=== PATIENT | female | born 1975 | race Caucasian/White ===

== ENCOUNTER 2017-09-25 12:20 | Emergency (ER) | payer OTHER ==
[~2017-09-25] VITALS: Ht 162.6 cm; Wt 106.6 kg
[~2017-09-25 12:20] MED LIST: ACETAMINOPHEN-1 EAC1 PO; AMOXICILLIN875 MG PO; BACTRIM DS TAB1 EAC1 PO; BACTRIM DS TAB1 EACH PO; CELEXA20 MG PO; CELEXA40 MG; CLEOCIN HCL150 MG PO; CLONAZEPAM 1 MG1 M1; CORTISPORIN OTI10 ML OTIC; DOXYCYCLINE 10100 MG PO; FLEXERIL PO; HYDROCODON-ACE1 EAC7 PO; HYDROCODONE-AP1 EAC6 PO; IBUPROFEN 800800 M1 PO; IMITREX 25 MG T25 M1; LATUDA60 MG PO; MEDROLDOSEPACK PO; MOBIC7.5 MG PO; NAPROSYN500 MG PO; NORCO 5-325 TA1 EAC1 PO; NORCO 5-325 TA1 EACH PO; NORFLEX100 MG; PREDNISONE 20 M20 M1 PO; ROBAXIN 750 MG750 M1 PO; ROBAXIN500 MG PO; SEROQUEL XR150 MG PO; TOPAMAX 25 MG T25 M1 PO; TOPAMAX50 MG PO; TORADOL 10 MG T10 MG PO; TRAMADOL 50 MG50 MG PO; TRAZODONE HCL100 MG PO; TRAZODONE HCL50 MG; TUSSIONEX PENN473 ML PO; VOLTAREN GEL 1100 G1 TOP; XANAX 0.5 MG0.5 MG PO
[2017-09-25 12:45] LABS: URINE BILIRUBIN NEGATIVE (Negative); URINE BLOOD TRACE (Negative); URINE CLARITY CLEAR; URINE COLOR YELLOW; URINE GLUCOSE-RANDOM NEGATIVE (Negative); URINE KETONES TRACE (Negative); URINE LEUKOCYTES-REFLEX NEGATIVE (Negative); URINE NITRITE-REFLEX NEGATIVE (Negative); URINE PROTEIN 1+ (Negative); URINE SPECIFIC GRAVITY >= 1.030 (1.005-1.030); URINE UROBILINOGEN 0.2 E.U./dl (0.2-1.0)
[2017-09-25 13:10] LABS: INFLUENZA A ANTIGEN None Detected (None Detect); INFLUENZA B ANTIGEN None Detected (None Detect)
[2017-09-25] MEDS ORDERED: PROMETHAZINE/C118 ML PO (13:21)
[2017-09-25] MEDS ORDERED: VENTOLIN HFA 1818 GM INH (13:21)
[2017-09-25] MEDS ORDERED: PREDNISONE 20 M20 M1 PO (13:21)
[2017-09-25] MEDS ORDERED: ZPAK PO (13:21)
[2017-09-25 13:40] VITALS: BP 131/77
== END 2017-09-25 13:41 | disposition home or self-care (01) ==
LOC: M.ERS 12:20
PROVIDERS: Family Medicine
DX: F41.9 Anxiety disorder, unspecified (principal); F31.9 Bipolar disorder, unspecified; M19.90 Unspecified osteoarthritis, unspecified site; Z98.890 Other specified postprocedural states; J40 Bronchitis, not specified as acute or chronic; Z88.1 Allergy status to other antibiotic agents; Z88.8 Allergy status to other drugs, medicaments and biological substances

== ENCOUNTER 2018-01-25 11:21 | Emergency (ER) | payer OTHER ==
[~2018-01-25] VITALS: Ht 162.6 cm; Wt 118.8 kg
[~2018-01-25 11:21] MED LIST changes: +PROMETHAZINE/C118 ML PO; +VENTOLIN HFA 1818 GM INH; +ZPAK PO
[2018-01-25 11:30] LABS: URINE BILIRUBIN NEGATIVE (Negative); URINE BLOOD 1+ (Negative); URINE CLARITY CLEAR; URINE COLOR YELLOW; URINE GLUCOSE-RANDOM NEGATIVE (Negative); URINE KETONES NEGATIVE (Negative); URINE LEUKOCYTES-REFLEX NEGATIVE (Negative); URINE NITRITE-REFLEX NEGATIVE (Negative); URINE PROTEIN NEGATIVE (Negative); URINE SPECIFIC GRAVITY >= 1.030 (1.005-1.030); URINE UROBILINOGEN 0.2 E.U./dl (0.2-1.0)
[2018-01-25] MEDS ORDERED: PROPRANOLOL 1010 MG PO (11:30)
[2018-01-25 11:38] LABS: ABSOLUTE BASOPHILS 0.1 thou/uL (0.0-0.2); ABSOLUTE EOSINOPHILS 0.3 thou/uL (0.0-0.7); ABSOLUTE LYMPHOCYTES 2.7 thou/uL (0.8-5.3); ABSOLUTE MONOCYTES 0.6 thou/uL (0.0-1.2); ABSOLUTE NEUTROPHILS 7.4 thou/uL (1.6-8.1); BASOPHILS 0.6 %; EOSINOPHILS 2.9 %; HEMATOCRIT 44.1 % (37.0-47.0); HEMOGLOBIN 14.8 gm/dL (12.0-15.0); LYMPHOCYTES 24.5 %; MCH 31.3 pg (26.0-34.0); MCHC 33.6 g/dL (28.0-37.0); MCV 93.2 fL (80.0-100.0); MONOCYTES 5.5 %; NUCLEATED RBCS 0 /100WBC; PLATELET COUNT* 211 thou/uL (150-400); POLYS 66.5 %; RBC 4.73 mil/uL (4.20-5.00); RDW-CV 14.1 % (10.5-14.5); WBC 11.1 thou/uL (4.0-11.0)
[2018-01-25 11:40] LABS: SQUAMOUS 4-10 Moderate /LPF (0-3); URINE RBC 3-10 Few /HPF (0-2); URINE WBC-REFLEX None Seen /HPF (0-5)
[2018-01-25 11:41] LABS: BACTERIA-REFLEX 1-9 Few /HPF (None Seen); CASTS None Seen /LPF (None Seen); MUCUS 4-6 Moderate strn/LPF (None Seen)
[2018-01-25 11:43] LABS: CRYSTALS None Seen /LPF (None Seen)
[2018-01-25 11:57] LABS: CREATININE 0.9 mg/dL (0.6-1.3); POTASSIUM 3.6 mmol/L (3.5-5.1)
[2018-01-25 12:02] LABS: ALBUMIN 3.8 g/dL (3.4-5.0); TOTAL BILIRUBIN 0.2 mg/dL (<0.1-1.0); TOTAL PROTEIN 7.4 g/dL (6.4-8.2)
[2018-01-25] MEDS ORDERED: ULTRAM 50MG TAB50 MG PO (12:56)
[2018-01-25] MEDS ORDERED: FLEXERIL PO (12:56)
[2018-01-25 13:03] VITALS: BP 144/93
== END 2018-01-25 13:04 | disposition home or self-care (01) ==
LOC: M.ERS 11:21
PROVIDERS: Family Medicine
DX: M54.5 Low back pain (principal); F31.9 Bipolar disorder, unspecified; M79.7 Fibromyalgia; M46.90 Unspecified inflammatory spondylopathy, site unspecified; F17.210 Nicotine dependence, cigarettes, uncomplicated; Z88.1 Allergy status to other antibiotic agents; Z88.8 Allergy status to other drugs, medicaments and biological substances

== ENCOUNTER 2018-03-09 17:40 | Emergency (ER) | payer OTHER ==
[~2018-03-09] VITALS: Ht 162.6 cm; Wt 115.7 kg
[~2018-03-09 17:40] MED LIST changes: +PROPRANOLOL 1010 MG PO; +ULTRAM 50MG TAB50 MG PO
[2018-03-09 17:56] LABS: URINE BILIRUBIN NEGATIVE (Negative); URINE BLOOD 1+ (Negative); URINE CLARITY CLEAR; URINE COLOR YELLOW; URINE GLUCOSE-RANDOM NEGATIVE (Negative); URINE KETONES NEGATIVE (Negative); URINE LEUKOCYTES-REFLEX NEGATIVE (Negative); URINE NITRITE-REFLEX NEGATIVE (Negative); URINE PROTEIN NEGATIVE (Negative); URINE SPECIFIC GRAVITY 1.025 (1.005-1.030); URINE UROBILINOGEN 0.2 E.U./dl (0.2-1.0)
[2018-03-09] MEDS ORDERED: QUETIAPINE FUM100 MG PO (18:02)
[2018-03-09 18:04] LABS: BACTERIA-REFLEX None Seen /HPF (None Seen); CASTS None Seen /LPF (None Seen); CRYSTALS None Seen /LPF (None Seen); MUCUS 0-3 Light strn/LPF (None Seen); SQUAMOUS >10 Many /LPF (0-3); URINE RBC 3-10 Few /HPF (0-2); URINE WBC-REFLEX None Seen /HPF (0-5)
[2018-03-09 18:36] LABS: ABSOLUTE BASOPHILS 0.1 thou/uL (0.0-0.2); ABSOLUTE EOSINOPHILS 0.2 thou/uL (0.0-0.7); ABSOLUTE MONOCYTES 0.9 thou/uL (0.0-1.2); ABSOLUTE NEUTROPHILS 11.3 thou/uL (1.6-8.1); BASOPHILS 0.5 %; EOSINOPHILS 1.4 %; HEMATOCRIT 44.6 % (37.0-47.0); HEMOGLOBIN 14.8 gm/dL (12.0-15.0); LYMPHOCYTES 19.3 %; MCH 30.8 pg (26.0-34.0); MCHC 33.2 g/dL (28.0-37.0); MCV 92.8 fL (80.0-100.0); MPV 10.3 fl. (7.2-11.1); NUCLEATED RBCS 0 /100WBC; PLATELET COUNT* 219 thou/uL (150-400); POLYS 72.8 %; RBC 4.81 mil/uL (4.20-5.00); RDW-CV 13.7 % (10.5-14.5); WBC 15.5 thou/uL (4.0-11.0)
[2018-03-09 18:44] LABS: CALCIUM 8.4 mg/dL (8.5-10.1); POTASSIUM 3.5 mmol/L (3.5-5.1)
[2018-03-09 18:48] LABS: ALBUMIN 3.6 g/dL (3.4-5.0); TOTAL BILIRUBIN 0.4 mg/dL (<0.1-1.0); TOTAL PROTEIN 7.6 g/dL (6.4-8.2)
[2018-03-09] MEDS ORDERED: HYDROCODONE-AP1 EAC6 PO (19:56)
[2018-03-09 20:27] VITALS: BP 135/83
== END 2018-03-09 20:29 | disposition home or self-care (01) ==
LOC: M.ERS 17:40
PROVIDERS: Nurse Practitioner Family
DX: N80.9 Endometriosis, unspecified (principal); F31.9 Bipolar disorder, unspecified; F41.9 Anxiety disorder, unspecified; M79.7 Fibromyalgia; M19.90 Unspecified osteoarthritis, unspecified site; G89.29 Other chronic pain; M54.9 Dorsalgia, unspecified; F17.210 Nicotine dependence, cigarettes, uncomplicated; Z88.1 Allergy status to other antibiotic agents; Z88.8 Allergy status to other drugs, medicaments and biological substances

== ENCOUNTER 2018-05-21 09:28 | Emergency (ER) | payer OTHER ==
[~2018-05-21] VITALS: Ht 162.6 cm; Wt 116.1 kg
[~2018-05-21 09:28] MED LIST changes: +QUETIAPINE FUM100 MG PO
[2018-05-21 09:55] LABS: ABSOLUTE BASOPHILS 0.1 thou/uL (0.0-0.2); ABSOLUTE EOSINOPHILS 0.1 thou/uL (0.0-0.7); ABSOLUTE MONOCYTES 0.6 thou/uL (0.0-1.2); ABSOLUTE NEUTROPHILS 5.9 thou/uL (1.6-8.1); BASOPHILS 0.6 %; EOSINOPHILS 1.4 %; HEMATOCRIT 44.1 % (37.0-47.0); HEMOGLOBIN 14.7 gm/dL (12.0-15.0); LYMPHOCYTES 23.3 %; MCH 31.3 pg (26.0-34.0); MCHC 33.3 g/dL (28.0-37.0); MCV 94.1 fL (80.0-100.0); MONOCYTES 6.7 %; MPV 10.4 fl. (7.2-11.1); NUCLEATED RBCS 0 /100WBC; PLATELET COUNT* 194 thou/uL (150-400); RBC 4.68 mil/uL (4.20-5.00); RDW-CV 14.4 % (10.5-14.5); WBC 8.6 thou/uL (4.0-11.0)
[2018-05-21 10:03] LABS: CALCIUM 8.1 mg/dL (8.5-10.1); CREATININE 0.8 mg/dL (0.6-1.3); POTASSIUM 3.7 mmol/L (3.5-5.1)
[2018-05-21 10:07] LABS: ALBUMIN 3.8 g/dL (3.4-5.0); TOTAL BILIRUBIN 0.3 mg/dL (<0.1-1.0); TOTAL PROTEIN 7.2 g/dL (6.4-8.2)
[2018-05-21] MEDS ORDERED: HYDROCODONE-AP1 EAC6 PO (10:17)
[2018-05-21] MEDS ORDERED: DOXYCYCLINE 10100 MG PO (10:17)
[2018-05-21 10:30] VITALS: BP 129/73
== END 2018-05-21 10:31 | disposition home or self-care (01) ==
LOC: M.ERS 09:28
PROVIDERS: Emergency Medicine Emergency Medical Services
DX: J32.9 Chronic sinusitis, unspecified (principal); F41.9 Anxiety disorder, unspecified; F31.9 Bipolar disorder, unspecified; M79.7 Fibromyalgia; G89.29 Other chronic pain; M54.9 Dorsalgia, unspecified; F17.210 Nicotine dependence, cigarettes, uncomplicated; Z88.1 Allergy status to other antibiotic agents; Z88.8 Allergy status to other drugs, medicaments and biological substances

== ENCOUNTER 2018-05-26 11:06 | Emergency (ER) | payer OTHER ==
[~2018-05-26] VITALS: Ht 162.6 cm; Wt 116.1 kg
[2018-05-26 11:38] LABS: ABSOLUTE EOSINOPHILS 0.2 thou/uL (0.0-0.7); ABSOLUTE LYMPHOCYTES 2.4 thou/uL (0.8-5.3); ABSOLUTE MONOCYTES 0.7 thou/uL (0.0-1.2); ABSOLUTE NEUTROPHILS 7.4 thou/uL (1.6-8.1); BASOPHILS 0.4 %; EOSINOPHILS 1.8 %; HEMATOCRIT 43.9 % (37.0-47.0); HEMOGLOBIN 14.6 gm/dL (12.0-15.0); LYMPHOCYTES 22.5 %; MCH 31.9 pg (26.0-34.0); MCHC 33.3 g/dL (28.0-37.0); MCV 95.7 fL (80.0-100.0); MONOCYTES 6.4 %; MPV 10.7 fl. (7.2-11.1); NUCLEATED RBCS 0 /100WBC; PLATELET COUNT* 203 thou/uL (150-400); POLYS 68.9 %; RBC 4.59 mil/uL (4.20-5.00); RDW-CV 14.6 % (10.5-14.5); WBC 10.8 thou/uL (4.0-11.0)
[2018-05-26 12:03] LABS: CALCIUM 8.6 mg/dL (8.5-10.1); CREATININE 1.1 mg/dL (0.6-1.3); POTASSIUM 3.8 mmol/L (3.5-5.1)
[2018-05-26 12:13] LABS: ALBUMIN 3.9 g/dL (3.4-5.0); TOTAL BILIRUBIN 0.2 mg/dL (<0.1-1.0); TOTAL PROTEIN 7.6 g/dL (6.4-8.2)
[2018-05-26] MEDS ORDERED: PREDNISONE 20 M20 M1 PO (12:18)
[2018-05-26] MEDS ORDERED: VENTOLIN HFA 1818 GM INH (12:18)
[2018-05-26 12:36] VITALS: BP 127/65
== END 2018-05-26 12:39 | disposition home or self-care (01) ==
LOC: M.ERS 11:06
PROVIDERS: Family Medicine
DX: J40 Bronchitis, not specified as acute or chronic (principal); F41.9 Anxiety disorder, unspecified; F31.9 Bipolar disorder, unspecified; M79.7 Fibromyalgia; G89.29 Other chronic pain; M54.9 Dorsalgia, unspecified; N80.9 Endometriosis, unspecified; M46.90 Unspecified inflammatory spondylopathy, site unspecified; F17.210 Nicotine dependence, cigarettes, uncomplicated; Z88.1 Allergy status to other antibiotic agents; Z88.8 Allergy status to other drugs, medicaments and biological substances

== ENCOUNTER 2018-06-17 18:26 | Emergency (ER) | payer OTHER ==
[~2018-06-17] VITALS: Ht 154.9 cm; Wt 116.1 kg
[2018-06-17] MEDS ORDERED: NORFLEX100 MG PO (18:42)
[2018-06-17 18:52] VITALS: BP 136/87
== END 2018-06-17 18:53 | disposition home or self-care (01) ==
LOC: M.ERS 18:26
DX: S16.1XXA Strain of muscle, fascia and tendon at neck level, initial encounter (principal); F41.9 Anxiety disorder, unspecified; F31.9 Bipolar disorder, unspecified; M79.7 Fibromyalgia; G89.29 Other chronic pain; M54.9 Dorsalgia, unspecified; N80.9 Endometriosis, unspecified; F17.210 Nicotine dependence, cigarettes, uncomplicated; Z88.1 Allergy status to other antibiotic agents; Z88.8 Allergy status to other drugs, medicaments and biological substances; X58.XXXA Exposure to other specified factors, initial encounter; Y93.89 Activity, other specified; Y92.89 Other specified places as the place of occurrence of the external cause; Y99.8 Other external cause status

== ENCOUNTER 2018-07-27 15:59 | Emergency (ER) | payer OTHER ==
[~2018-07-27] VITALS: Ht 162.6 cm; Wt 111.1 kg
[~2018-07-27 15:59] MED LIST changes: +NORFLEX100 MG PO
[2018-07-27 17:00] LABS: ABSOLUTE BASOPHILS 0.1 thou/uL (0.0-0.2); ABSOLUTE EOSINOPHILS 0.1 thou/uL (0.0-0.7); ABSOLUTE LYMPHOCYTES 2.3 thou/uL (0.8-5.3); ABSOLUTE MONOCYTES 0.7 thou/uL (0.0-1.2); ABSOLUTE NEUTROPHILS 7.1 thou/uL (1.6-8.1); BASOPHILS 0.6 %; HEMATOCRIT 46.2 % (37.0-47.0); HEMOGLOBIN 15.3 gm/dL (12.0-15.0); LYMPHOCYTES 22.3 %; MCH 31.6 pg (26.0-34.0); MCV 95.5 fL (80.0-100.0); MONOCYTES 6.9 %; MPV 10.5 fl. (7.2-11.1); NUCLEATED RBCS 0 /100WBC; PLATELET COUNT* 188 thou/uL (150-400); POLYS 69.2 %; RBC 4.84 mil/uL (4.20-5.00); RDW-CV 13.8 % (10.5-14.5); WBC 10.3 thou/uL (4.0-11.0)
[2018-07-27 17:08] LABS: CALCIUM 8.5 mg/dL (8.5-10.1); CREATININE 0.9 mg/dL (0.6-1.3); POTASSIUM 3.8 mmol/L (3.5-5.1)
[2018-07-27 17:13] LABS: ALBUMIN 3.9 g/dL (3.4-5.0); TOTAL BILIRUBIN 0.3 mg/dL (<0.1-1.0); TOTAL PROTEIN 7.6 g/dL (6.4-8.2)
[2018-07-27 17:44] LABS: URINE BILIRUBIN NEGATIVE (Negative); URINE BLOOD 1+ (Negative); URINE CLARITY CLEAR; URINE COLOR YELLOW; URINE GLUCOSE-RANDOM NEGATIVE (Negative); URINE KETONES NEGATIVE (Negative); URINE LEUKOCYTES-REFLEX NEGATIVE (Negative); URINE NITRITE-REFLEX NEGATIVE (Negative); URINE PROTEIN NEGATIVE (Negative); URINE SPECIFIC GRAVITY >= 1.030 (1.005-1.030); URINE UROBILINOGEN 0.2 E.U./dl (0.2-1.0)
[2018-07-27 17:54] LABS: SQUAMOUS >10 Many /LPF (0-3)
[2018-07-27 17:55] LABS: BACTERIA-REFLEX None Seen /HPF (None Seen); CASTS None Seen /LPF (None Seen); CRYSTALS None Seen /LPF (None Seen); URINE RBC 0-2 Rare /HPF (0-2); URINE WBC-REFLEX 0-5 Rare /HPF (0-5); YEAST-REFLEX Present (None Seen)
[2018-07-27 18:32] VITALS: BP 123/78
== END 2018-07-27 18:33 | disposition home or self-care (01) ==
LOC: M.ERS 15:59
PROVIDERS: Personal Emergency Response Attendant
DX: S06.0X0A Concussion without loss of consciousness, initial encounter (principal); S39.012A Strain of muscle, fascia and tendon of lower back, initial encounter; M25.552 Pain in left hip; R11.10 Vomiting, unspecified; H53.149 Visual discomfort, unspecified; F41.9 Anxiety disorder, unspecified; F31.9 Bipolar disorder, unspecified; M79.7 Fibromyalgia; M46.90 Unspecified inflammatory spondylopathy, site unspecified; N80.9 Endometriosis, unspecified; F17.210 Nicotine dependence, cigarettes, uncomplicated; Z88.1 Allergy status to other antibiotic agents; Z88.8 Allergy status to other drugs, medicaments and biological substances; W01.0XXA Fall on same level from slipping, tripping and stumbling without subsequent striking against object, initial encounter; Y93.89 Activity, other specified; Y92.091 Bathroom in other non-institutional residence as the place of occurrence of the external cause; Y99.8 Other external cause status

== ENCOUNTER 2018-08-25 10:42 | Emergency (ER) | payer OTHER ==
[~2018-08-25] VITALS: Ht 162.6 cm; Wt 117.0 kg
[2018-08-25] MEDS ORDERED: PROPRANOLOL 1010 MG PO (10:54)
[2018-08-25] MEDS ORDERED: TOPAMAX 25 MG T25 M1 PO (10:54)
[2018-08-25] MEDS ORDERED: ABILIFY 2 MG2 M1 PO (10:54)
[2018-08-25] MEDS ORDERED: HYDROCODONE-AP1 EAC6 PO (12:03)
[2018-08-25] MEDS ORDERED: ROBAXIN 750 MG750 M1 PO (12:06)
[2018-08-25 12:40] VITALS: BP 130/87
== END 2018-08-25 12:40 | disposition home or self-care (01) ==
LOC: M.ERS 10:42
DX: M54.5 Low back pain (principal); M62.830 Muscle spasm of back; F41.9 Anxiety disorder, unspecified; F31.9 Bipolar disorder, unspecified; M79.7 Fibromyalgia; G89.29 Other chronic pain; M46.90 Unspecified inflammatory spondylopathy, site unspecified; F17.210 Nicotine dependence, cigarettes, uncomplicated; Z88.1 Allergy status to other antibiotic agents; Z88.8 Allergy status to other drugs, medicaments and biological substances; W01.0XXA Fall on same level from slipping, tripping and stumbling without subsequent striking against object, initial encounter; Y93.89 Activity, other specified; Y92.89 Other specified places as the place of occurrence of the external cause; Y99.8 Other external cause status

== ENCOUNTER 2018-10-09 09:21 | Emergency (ER) | payer OTHER ==
[~2018-10-09] VITALS: Ht 162.6 cm; Wt 113.4 kg
[~2018-10-09 09:21] MED LIST changes: +ABILIFY 2 MG2 M1 PO
[2018-10-09] MEDS ORDERED: BACTRIM DS TAB1 EAC1 PO (10:52)
[2018-10-09] MEDS ORDERED: NORCO 5-325 TA1 EACH PO (10:52)
[2018-10-09] MEDS ORDERED: NABUMETONE 750750 M1 PO (10:52)
[2018-10-09 11:16] VITALS: BP 125/56
== END 2018-10-09 11:17 | disposition home or self-care (01) ==
LOC: M.ERS 09:21
DX: L60.0 Ingrowing nail (principal); F17.210 Nicotine dependence, cigarettes, uncomplicated; F41.9 Anxiety disorder, unspecified; M79.7 Fibromyalgia; F31.9 Bipolar disorder, unspecified; M54.9 Dorsalgia, unspecified; G89.29 Other chronic pain; N80.9 Endometriosis, unspecified; M46.96 Unspecified inflammatory spondylopathy, lumbar region; Z88.8 Allergy status to other drugs, medicaments and biological substances; Z90.89 Acquired absence of other organs; Z88.1 Allergy status to other antibiotic agents

== ENCOUNTER 2019-01-17 18:45 | Emergency (ER) | payer OTHER ==
[~2019-01-17] VITALS: Ht 162.6 cm; Wt 112.5 kg
[~2019-01-17 18:45] MED LIST changes: +NABUMETONE 750750 M1 PO
[2019-01-17] MEDS ORDERED: HYDROCODONE-AP1 EAC6 PO (20:13)
[2019-01-17] MEDS ORDERED: ROBAXIN 750 MG750 M1 PO (20:13)
[2019-01-17 20:36] VITALS: BP 126/82
== END 2019-01-17 20:36 | disposition home or self-care (01) ==
LOC: M.ERS 18:45
DX: M25.552 Pain in left hip (principal); S39.012A Strain of muscle, fascia and tendon of lower back, initial encounter; F41.9 Anxiety disorder, unspecified; F31.9 Bipolar disorder, unspecified; M79.7 Fibromyalgia; G89.29 Other chronic pain; N80.9 Endometriosis, unspecified; F17.210 Nicotine dependence, cigarettes, uncomplicated; Z88.1 Allergy status to other antibiotic agents; Z88.8 Allergy status to other drugs, medicaments and biological substances; W10.8XXA Fall (on) (from) other stairs and steps, initial encounter; Y93.89 Activity, other specified; Y92.89 Other specified places as the place of occurrence of the external cause; Y99.8 Other external cause status

== ENCOUNTER 2019-02-28 14:49 | Emergency (ER) | payer OTHER ==
[~2019-02-28] VITALS: Ht 162.6 cm; Wt 108.9 kg
[2019-02-28] MEDS ORDERED: PROPRANOLOL 1010 M1 PO (15:05)
[2019-02-28] MEDS ORDERED: TRAMADOL 50 MG50 MG PO (15:54)
[2019-02-28 16:21] VITALS: BP 139/97
== END 2019-02-28 16:22 | disposition home or self-care (01) ==
LOC: M.ERS 14:49
DX: G89.29 Other chronic pain (principal); M54.2 Cervicalgia; M25.511 Pain in right shoulder; M25.512 Pain in left shoulder; F41.9 Anxiety disorder, unspecified; F31.9 Bipolar disorder, unspecified; M79.7 Fibromyalgia; M54.9 Dorsalgia, unspecified; N80.9 Endometriosis, unspecified; M46.90 Unspecified inflammatory spondylopathy, site unspecified; F17.210 Nicotine dependence, cigarettes, uncomplicated; Z88.1 Allergy status to other antibiotic agents; Z88.8 Allergy status to other drugs, medicaments and biological substances

== ENCOUNTER 2019-05-30 18:23 | Emergency (ER) | payer OTHER ==
[~2019-05-30] VITALS: Ht 162.6 cm; Wt 121.6 kg
[~2019-05-30 18:23] MED LIST changes: +PROPRANOLOL 1010 M1 PO
[2019-05-30] MEDS ORDERED: TOPAMAX100 MG PO (18:39)
[2019-05-30] MEDS ORDERED: CELEXA 20 MG TA20 MG PO (18:39)
[2019-05-30] MEDS ORDERED: HYDROXYZINE HCL10 M1 PO (18:40)
[2019-05-30] MEDS ORDERED: ROBAXIN 750 MG750 MG PO (19:31)
[2019-05-30 19:44] VITALS: BP 129/84
== END 2019-05-30 19:45 | disposition home or self-care (01) ==
LOC: M.ERS 18:23
DX: M79.7 Fibromyalgia (principal); N80.9 Endometriosis, unspecified; F41.9 Anxiety disorder, unspecified; F31.9 Bipolar disorder, unspecified; M46.90 Unspecified inflammatory spondylopathy, site unspecified; F17.210 Nicotine dependence, cigarettes, uncomplicated; Z88.1 Allergy status to other antibiotic agents; Z88.8 Allergy status to other drugs, medicaments and biological substances

== ENCOUNTER 2019-06-23 21:26 | Emergency (ER) | payer OTHER ==
[~2019-06-23] VITALS: Ht 162.6 cm; Wt 113.8 kg
[~2019-06-23 21:26] MED LIST changes: +CELEXA 20 MG TA20 MG PO; +HYDROXYZINE HCL10 M1 PO; +ROBAXIN 750 MG750 MG PO; +TOPAMAX100 MG PO
[2019-06-23] MEDS ORDERED: RISPERDAL0.5 MG PO (21:40)
[2019-06-24] MEDS ORDERED: LORCET 5-325 M1 EACH PO (00:44)
[2019-06-24 01:00] VITALS: BP 149/73
== END 2019-06-24 01:00 | disposition home or self-care (01) ==
LOC: M.ERS 21:26
DX: S63.591A Other specified sprain of right wrist, initial encounter (principal); F41.9 Anxiety disorder, unspecified; F31.9 Bipolar disorder, unspecified; M79.7 Fibromyalgia; G89.29 Other chronic pain; N80.9 Endometriosis, unspecified; F17.210 Nicotine dependence, cigarettes, uncomplicated; Z88.1 Allergy status to other antibiotic agents; Z98.890 Other specified postprocedural states; Z88.8 Allergy status to other drugs, medicaments and biological substances; W18.39XA Other fall on same level, initial encounter; Y93.89 Activity, other specified; Y92.89 Other specified places as the place of occurrence of the external cause; Y99.8 Other external cause status

== ENCOUNTER 2019-08-06 17:50 | Emergency (ER) | payer OTHER ==
[~2019-08-06] VITALS: Ht 162.6 cm; Wt 109.8 kg
[~2019-08-06 17:50] MED LIST changes: +LORCET 5-325 M1 EACH PO; +RISPERDAL0.5 MG PO
[2019-08-06] MEDS ORDERED: MELOXICAM7.5 MG PO (18:14)
[2019-08-06] MEDS ORDERED: LIDODERM1 EACH TRANSDERM (18:34)
[2019-08-06] MEDS ORDERED: TORADOL 10 MG T10 MG PO (18:34)
[2019-08-06 19:33] VITALS: BP 146/94
== END 2019-08-06 19:33 | disposition home or self-care (01) ==
LOC: M.ERS 17:50
DX: M25.551 Pain in right hip (principal); M79.18 Myalgia, other site; F41.9 Anxiety disorder, unspecified; F31.9 Bipolar disorder, unspecified; G89.29 Other chronic pain; N80.9 Endometriosis, unspecified; F17.210 Nicotine dependence, cigarettes, uncomplicated; Z88.1 Allergy status to other antibiotic agents; Z88.8 Allergy status to other drugs, medicaments and biological substances; Z98.890 Other specified postprocedural states

== ENCOUNTER 2019-09-03 17:09 | Emergency (ER) | payer OTHER ==
[~2019-09-03] VITALS: Ht 162.6 cm; Wt 117.9 kg
[~2019-09-03 17:09] MED LIST changes: +LIDODERM1 EACH TRANSDERM; +MELOXICAM7.5 MG PO
[2019-09-03 19:04] LABS: INFLUENZA A ANTIGEN Negative (Negative); INFLUENZA B ANTIGEN Negative (Negative)
[2019-09-03] MEDS ORDERED: IBUPROFEN 800800 M1 PO (19:47)
[2019-09-03] MEDS ORDERED: AUGMENTIN 875-1 EACH PO (19:47)
[2019-09-03] MEDS ORDERED: NORCO 5-325 TA1 EAC1 PO (19:47)
[2019-09-03 20:06] VITALS: BP 130/70
== END 2019-09-03 20:06 | disposition home or self-care (01) ==
LOC: M.ERS 17:09
PROVIDERS: Nurse Practitioner Family
DX: S16.1XXA Strain of muscle, fascia and tendon at neck level, initial encounter (principal); M25.512 Pain in left shoulder; J32.1 Chronic frontal sinusitis; M79.7 Fibromyalgia; G89.29 Other chronic pain; N80.9 Endometriosis, unspecified; F17.210 Nicotine dependence, cigarettes, uncomplicated; Z88.1 Allergy status to other antibiotic agents; Z88.8 Allergy status to other drugs, medicaments and biological substances; Z90.89 Acquired absence of other organs; W00.0XXA Fall on same level due to ice and snow, initial encounter; Y93.89 Activity, other specified; Y92.89 Other specified places as the place of occurrence of the external cause; Y99.8 Other external cause status

== ENCOUNTER 2019-12-01 16:22 | Emergency (ER) | payer OTHER ==
[~2019-12-01] VITALS: Ht 162.6 cm; Wt 117.5 kg
[~2019-12-01 16:22] MED LIST changes: +AUGMENTIN 875-1 EACH PO
[2019-12-01] MEDS ORDERED: DOXYCYCLINE 10100 MG PO (16:41)
[2019-12-01] MEDS ORDERED: NORCO 5-325 TA1 EAC1 PO (16:41)
[2019-12-01 16:48] VITALS: BP 165/76
== END 2019-12-01 16:49 | disposition home or self-care (01) ==
LOC: M.ERS 16:22
DX: L03.031 Cellulitis of right toe (principal); B35.1 Tinea unguium; M79.7 Fibromyalgia; N80.9 Endometriosis, unspecified; G89.29 Other chronic pain; M46.90 Unspecified inflammatory spondylopathy, site unspecified; F17.210 Nicotine dependence, cigarettes, uncomplicated; Z88.1 Allergy status to other antibiotic agents; Z88.8 Allergy status to other drugs, medicaments and biological substances; Z90.89 Acquired absence of other organs

== ENCOUNTER 2020-01-05 08:35 | Emergency (ER) | payer OTHER ==
[~2020-01-05] VITALS: Ht 162.6 cm; Wt 117.0 kg
[2020-01-05] MEDS ORDERED: VALIUM2 MG PO (08:46)
[2020-01-05 09:07] LABS: ABSOLUTE EOSINOPHILS 0.1 thou/uL (0.0-0.7); ABSOLUTE MONOCYTES 0.6 thou/uL (0.0-1.2); ABSOLUTE NEUTROPHILS 5.7 thou/uL (1.6-8.1); BASOPHILS 0.5 %; EOSINOPHILS 1.1 %; HEMATOCRIT 45.1 % (37.0-47.0); HEMOGLOBIN 15.7 gm/dL (12.0-15.0); LYMPHOCYTES 23.7 %; MCH 31.8 pg (26.0-34.0); MCHC 34.7 g/dL (28.0-37.0); MCV 91.5 fL (80.0-100.0); MONOCYTES 7.4 %; MPV 9.9 fl. (7.2-11.1); NUCLEATED RBCS 0 /100WBC; POLYS 67.3 %; RBC 4.93 mil/uL (4.20-5.00); RDW-CV 13.9 % (10.5-14.5); WBC 8.5 thou/uL (4.0-11.0)
[2020-01-05 09:08] LABS: URINE BLOOD 1+ (Negative); URINE CLARITY CLEAR; URINE COLOR YELLOW; URINE GLUCOSE-RANDOM NEGATIVE (Negative); URINE KETONES NEGATIVE (Negative); URINE LEUKOCYTES-REFLEX NEGATIVE (Negative); URINE NITRITE-REFLEX NEGATIVE (Negative); URINE PROTEIN NEGATIVE (Negative); URINE SPECIFIC GRAVITY >= 1.030 (1.005-1.030); URINE UROBILINOGEN 0.2 E.U./dl (0.2-1.0)
[2020-01-05 09:10] LABS: ICTOTEST (BILI CONFIRMATORY) Negative (Negative); URINE BILIRUBIN 1+ (Negative)
[2020-01-05 09:18] LABS: CALCIUM 8.5 mg/dL (8.5-10.1)
[2020-01-05 09:19] LABS: SQUAMOUS >10 Many /LPF (0-3); URINE RBC 0-2 Rare /HPF (0-2); URINE WBC-REFLEX 0-5 Rare /HPF (0-5)
[2020-01-05 09:20] LABS: BACTERIA-REFLEX >30 Many /HPF (None Seen); CASTS None Seen /LPF (None Seen); CRYSTALS None Seen /LPF (None Seen); MUCUS >6 Heavy strn/LPF (None Seen)
[2020-01-05 09:22] LABS: ALBUMIN 3.9 g/dL (3.4-5.0); MAGNESIUM 1.9 mg/dL (1.8-2.4); TOTAL BILIRUBIN 0.3 mg/dL (<0.1-1.0); TOTAL PROTEIN 7.5 g/dL (6.4-8.2)
[2020-01-05] MEDS ORDERED: HYDROCODON-ACE1 EAC7 PO (11:41)
[2020-01-05] MEDS ORDERED: BACTRIM DS TAB1 EAC1 PO (11:41)
[2020-01-05] MEDS ORDERED: ZOFRAN ODT4 MG PO (11:41)
[2020-01-05 11:44] LABS: PLATELET ESTIMATE ADEQUATE
[2020-01-05 11:45] LABS: ANISOCYTOSIS 1+; LARGE PLATELETS OCCASIONAL; PLATELET COUNT* 187 thou/uL (150-400); POIKILOCYTOSIS 1+
[2020-01-05 11:49] VITALS: BP 133/85
== END 2020-01-05 11:51 | disposition home or self-care (01) ==
LOC: M.ERS 08:35
PROVIDERS: Personal Emergency Response Attendant
DX: N39.0 Urinary tract infection, site not specified (principal); M54.9 Dorsalgia, unspecified; M79.7 Fibromyalgia; N80.9 Endometriosis, unspecified; G89.29 Other chronic pain; F41.9 Anxiety disorder, unspecified; F31.9 Bipolar disorder, unspecified; F17.210 Nicotine dependence, cigarettes, uncomplicated; Z90.49 Acquired absence of other specified parts of digestive tract; Z88.1 Allergy status to other antibiotic agents; Z88.8 Allergy status to other drugs, medicaments and biological substances

== ENCOUNTER 2020-02-03 11:22 | Emergency (ER) | payer OTHER ==
[~2020-02-03] VITALS: Ht 162.6 cm; Wt 117.9 kg
[~2020-02-03 11:22] MED LIST changes: +VALIUM2 MG PO; +ZOFRAN ODT4 MG PO
[2020-02-03] MEDS ORDERED: TRAMADOL 50 MG50 MG PO (11:36)
[2020-02-03] MEDS ORDERED: ROBAXIN 750 MG750 MG PO (11:37)
[2020-02-03] MEDS ORDERED: NORCO 5-325 TA1 EAC1 PO (12:06)
[2020-02-03 12:16] VITALS: BP 137/102
== END 2020-02-03 12:17 | disposition home or self-care (01) ==
LOC: M.ERS 11:22
DX: S63.502A Unspecified sprain of left wrist, initial encounter (principal); F12.90 Cannabis use, unspecified, uncomplicated; M79.7 Fibromyalgia; G89.29 Other chronic pain; F17.210 Nicotine dependence, cigarettes, uncomplicated; Z88.1 Allergy status to other antibiotic agents; Z88.8 Allergy status to other drugs, medicaments and biological substances; Z79.899 Other long term (current) drug therapy; W01.0XXA Fall on same level from slipping, tripping and stumbling without subsequent striking against object, initial encounter; Y93.01 Activity, walking, marching and hiking; Y92.89 Other specified places as the place of occurrence of the external cause; Y99.9 Unspecified external cause status

== ENCOUNTER 2020-04-10 15:54 | Emergency (ER) | payer OTHER ==
[~2020-04-10] VITALS: Ht 162.6 cm; Wt 115.7 kg
[2020-04-10] MEDS ORDERED: NAPROSYN500 MG PO (17:40)
[2020-04-10 17:57] VITALS: BP 135/74
== END 2020-04-10 17:57 | disposition home or self-care (01) ==
LOC: M.ERS 15:54
DX: S93.491A Sprain of other ligament of right ankle, initial encounter (principal); M79.7 Fibromyalgia; M46.90 Unspecified inflammatory spondylopathy, site unspecified; N80.9 Endometriosis, unspecified; F17.210 Nicotine dependence, cigarettes, uncomplicated; Z88.1 Allergy status to other antibiotic agents; Z88.8 Allergy status to other drugs, medicaments and biological substances; W18.39XA Other fall on same level, initial encounter; Y93.89 Activity, other specified; Y92.89 Other specified places as the place of occurrence of the external cause; Y99.8 Other external cause status

== ENCOUNTER 2020-04-25 17:33 | Emergency (ER) | payer OTHER ==
[~2020-04-25] VITALS: Ht 162.6 cm; Wt 113.4 kg
[2020-04-25] MEDS ORDERED: CYMBALTA20 MG PO (17:41)
[2020-04-25] MEDS ORDERED: HYDROCODON-ACE1 EAC7 PO (18:44)
[2020-04-25] MEDS ORDERED: PREDNISONE50 MG PO (18:44)
[2020-04-25 19:08] VITALS: BP 149/82
== END 2020-04-25 19:10 | disposition home or self-care (01) ==
LOC: M.ERS 17:33
DX: S20.212A Contusion of left front wall of thorax, initial encounter (principal); M79.7 Fibromyalgia; G89.29 Other chronic pain; N80.9 Endometriosis, unspecified; F17.210 Nicotine dependence, cigarettes, uncomplicated; Z88.1 Allergy status to other antibiotic agents; Z90.89 Acquired absence of other organs; Z88.8 Allergy status to other drugs, medicaments and biological substances; W01.0XXA Fall on same level from slipping, tripping and stumbling without subsequent striking against object, initial encounter; Y93.89 Activity, other specified; Y92.89 Other specified places as the place of occurrence of the external cause; Y99.8 Other external cause status

== ENCOUNTER 2020-05-24 14:34 | Emergency (ER) | payer OTHER ==
[~2020-05-24] VITALS: Ht 162.6 cm; Wt 117.0 kg
[~2020-05-24 14:34] MED LIST changes: +CYMBALTA20 MG PO; +PREDNISONE50 MG PO
[2020-05-24] MEDS ORDERED: XANAX 0.5 MG0.5 M1 PO (14:43)
[2020-05-24 15:36] VITALS: BP 133/67
== END 2020-05-24 15:36 | disposition home or self-care (01) ==
LOC: M.ERS 14:34
DX: S60.222A Contusion of left hand, initial encounter (principal); M79.7 Fibromyalgia; G89.29 Other chronic pain; N80.9 Endometriosis, unspecified; W22.8XXA Striking against or struck by other objects, initial encounter; Y93.89 Activity, other specified; Y92.89 Other specified places as the place of occurrence of the external cause; Y99.8 Other external cause status

== ENCOUNTER 2020-08-03 16:18 | Emergency (ER) | payer OTHER ==
[~2020-08-03] VITALS: Ht 162.6 cm; Wt 117.0 kg
[~2020-08-03 16:18] MED LIST changes: +XANAX 0.5 MG0.5 M1 PO
[2020-08-03 17:30] VITALS: BP 138/72
== END 2020-08-03 17:31 | disposition home or self-care (01) ==
LOC: M.ERS 16:18
DX: M25.552 Pain in left hip (principal); M79.7 Fibromyalgia; G89.29 Other chronic pain; N80.9 Endometriosis, unspecified; F17.210 Nicotine dependence, cigarettes, uncomplicated; Z88.1 Allergy status to other antibiotic agents; Z88.8 Allergy status to other drugs, medicaments and biological substances; Z90.89 Acquired absence of other organs

== ENCOUNTER 2020-10-02 12:05 | Emergency (ER) | payer OTHER ==
[~2020-10-02] VITALS: Ht 162.6 cm; Wt 115.2 kg
[2020-10-02 14:40] VITALS: BP 143/91
== END 2020-10-02 14:40 | disposition home or self-care (01) ==
LOC: M.ERS 12:05
DX: S63.591A Other specified sprain of right wrist, initial encounter (principal); M79.7 Fibromyalgia; G89.29 Other chronic pain; F17.210 Nicotine dependence, cigarettes, uncomplicated; Z88.1 Allergy status to other antibiotic agents; Z88.8 Allergy status to other drugs, medicaments and biological substances; Z79.899 Other long term (current) drug therapy; Z90.89 Acquired absence of other organs; V98.8XXA Other specified transport accidents, initial encounter; Y93.89 Activity, other specified; Y92.89 Other specified places as the place of occurrence of the external cause; Y99.9 Unspecified external cause status

== ENCOUNTER 2020-10-06 13:43 | Emergency (ER) | payer OTHER ==
[~2020-10-06] VITALS: Ht 165.1 cm; Wt 142.9 kg
[2020-10-06] MEDS ORDERED: TRAMADOL 50 MG50 MG PO (15:41)
[2020-10-06] MEDS ORDERED: APAP W/CODEINE1 TA2 PO (16:01)
[2020-10-06 16:13] VITALS: BP 145/87
== END 2020-10-06 16:15 | disposition home or self-care (01) ==
LOC: M.ERS 13:43
DX: S80.02XA Contusion of left knee, initial encounter (principal); G89.29 Other chronic pain; N80.9 Endometriosis, unspecified; M79.7 Fibromyalgia; M47.9 Spondylosis, unspecified; F17.210 Nicotine dependence, cigarettes, uncomplicated; Z88.1 Allergy status to other antibiotic agents; Z88.6 Allergy status to analgesic agent; Z88.8 Allergy status to other drugs, medicaments and biological substances; Z90.89 Acquired absence of other organs; W00.0XXA Fall on same level due to ice and snow, initial encounter; Y93.89 Activity, other specified; Y92.89 Other specified places as the place of occurrence of the external cause; Y99.8 Other external cause status

== ENCOUNTER → 2020-10-09 | Emergency (ER) | payer OTHER ==
[~2020-10-09] VITALS: Ht 162.6 cm; Wt 115.2 kg
[~2020-10-09] MED LIST changes: +APAP W/CODEINE1 TA2 PO
[2020-10-09 15:32] VITALS: BP 145/94
== END ==
LOC: M.ERS 15:18
DX: F41.0 Panic disorder [episodic paroxysmal anxiety] (principal); R42 Dizziness and giddiness; R51.9 Headache, unspecified; F31.9 Bipolar disorder, unspecified; F41.9 Anxiety disorder, unspecified; M79.7 Fibromyalgia; M19.90 Unspecified osteoarthritis, unspecified site; F17.210 Nicotine dependence, cigarettes, uncomplicated; Z79.899 Other long term (current) drug therapy; Z88.1 Allergy status to other antibiotic agents; Z88.8 Allergy status to other drugs, medicaments and biological substances

== ENCOUNTER 2021-01-19 13:16 | Emergency (ER) | payer OTHER ==
[~2021-01-19] VITALS: Ht 162.6 cm; Wt 110.7 kg
[2021-01-19] MEDS ORDERED: TRAMADOL 50 MG50 MG PO (13:53)
[2021-01-19] MEDS ORDERED: TRILEPTAL150 MG PO (13:53)
[2021-01-19] MEDS ORDERED: HYDROCODON-ACE1 EAC7 PO (14:39)
[2021-01-19 14:52] VITALS: BP 121/70
== END 2021-01-19 14:52 | disposition home or self-care (01) ==
LOC: M.ERS 13:16
DX: S46.091A Other injury of muscle(s) and tendon(s) of the rotator cuff of right shoulder, initial encounter (principal); M79.7 Fibromyalgia; G89.29 Other chronic pain; F17.210 Nicotine dependence, cigarettes, uncomplicated; F12.90 Cannabis use, unspecified, uncomplicated; Z88.1 Allergy status to other antibiotic agents; Z88.6 Allergy status to analgesic agent; Z88.8 Allergy status to other drugs, medicaments and biological substances; Z79.899 Other long term (current) drug therapy; X58.XXXA Exposure to other specified factors, initial encounter; Y93.89 Activity, other specified; Y92.89 Other specified places as the place of occurrence of the external cause; Y99.9 Unspecified external cause status

== ENCOUNTER 2021-02-26 19:15 | Emergency (ER) | payer OTHER ==
[~2021-02-26] VITALS: Ht 162.6 cm; Wt 112.5 kg
[~2021-02-26 19:15] MED LIST changes: +TRILEPTAL150 MG PO
[2021-02-26 19:30] VITALS: BP 172/97
[2021-02-26] MEDS ORDERED: ACETAMINOPHEN-1 EAC2 PO ×2 (19:47→20:45)
[2021-02-26] MEDS ORDERED: MELOXICAM15 MG PO ×2 (19:47→20:45)
== END 2021-02-26 19:56 | disposition home or self-care (01) ==
LOC: M.ERS 19:15
DX: G89.29 Other chronic pain (principal); M25.511 Pain in right shoulder; M79.7 Fibromyalgia; N80.9 Endometriosis, unspecified; F17.210 Nicotine dependence, cigarettes, uncomplicated; Z90.710 Acquired absence of both cervix and uterus; Z88.1 Allergy status to other antibiotic agents; Z88.6 Allergy status to analgesic agent; Z88.8 Allergy status to other drugs, medicaments and biological substances; Z90.89 Acquired absence of other organs

== ENCOUNTER 2021-05-23 14:52 | Emergency (ER) | payer OTHER ==
[~2021-05-23] VITALS: Ht 162.6 cm; Wt 109.3 kg
[~2021-05-23 14:52] MED LIST changes: +ACETAMINOPHEN-1 EAC2 PO; +MELOXICAM15 MG PO
[2021-05-23] MEDS ORDERED: NEURONTIN100 MG PO (15:16)
[2021-05-23 17:06] VITALS: BP 144/96
== END 2021-05-23 17:08 | disposition home or self-care (01) ==
LOC: M.ERS 14:52
DX: M25.511 Pain in right shoulder (principal); Z98.890 Other specified postprocedural states; F31.9 Bipolar disorder, unspecified; F41.9 Anxiety disorder, unspecified; M79.7 Fibromyalgia; M47.819 Spondylosis without myelopathy or radiculopathy, site unspecified; F17.210 Nicotine dependence, cigarettes, uncomplicated; Z90.711 Acquired absence of uterus with remaining cervical stump; Z79.899 Other long term (current) drug therapy; Z88.8 Allergy status to other drugs, medicaments and biological substances; Z88.1 Allergy status to other antibiotic agents; X50.9XXA Other and unspecified overexertion or strenuous movements or postures, initial encounter; Y93.89 Activity, other specified; Y92.89 Other specified places as the place of occurrence of the external cause; Y99.8 Other external cause status